=== PATIENT | male | born 2000 | race Caucasian/White ===

== ENCOUNTER 2022-02-22 15:12 | Emergency (ER) | payer BC ==
[~2022-02-22] VITALS: Ht 175.3 cm; Wt 79.5 kg
[2022-02-22] MEDS ORDERED: LEVE500T5 OR (15:27)
[2022-02-22 15:45] VITALS: BP 123/59
[2022-02-22] MEDS ORDERED: levETIRAcetam INJection 500 MG in D5W MINI-BAG PLUS 100 ML IV ONE (16:10)
[2022-02-22] MEDS ORDERED: levETIRAcetam INJection 1,000 MG in D5W 100 ML IV ONE (16:20)
== END 2022-02-22 18:16 | disposition home or self-care (01) ==
LOC: M ED 15:12
DX: G40.509 Epileptic seizures related to external causes, not intractable, without status epilepticus (principal); F41.8 Other specified anxiety disorders; F32.A Depression, unspecified; F17.200 Nicotine dependence, unspecified, uncomplicated; Z88.1 Allergy status to other antibiotic agents
CPT/HCPCS: 96365; 99284; J1953